=== PATIENT | male | born 1965 | race African-American/Black ===

== ENCOUNTER 2022-09-13 15:32 | Inpatient (IN) | payer OTHER ==
[2022-09-13 16:44] VITALS: BMI 18.7
[2022-09-13] MEDS ORDERED: MAG HYDROX/AL HYDROX/SIMETH 30 ML UNIT-DOSE CUP PO PRN (18:37)
[2022-09-13] MEDS ORDERED: P-EPHED 60MG/TRIPROLIDI 2.5MG TABLET PO PRN (18:37)
[2022-09-13] MEDS ORDERED: MAGNESIUM CITRATE 300 ML BOTTLE PO PRN (18:37)
[2022-09-13] MEDS ORDERED: NICOTINE POLACRILEX 2 MG GUM BC PRN (18:37)
[2022-09-13] MEDS ORDERED: guaiFENesin 200 MG/10 ML 10 ML UNIT-DOSE CUPS PO PRN (18:37)
[2022-09-13] MEDS ORDERED: MAGNESIUM HYDROX 2400MG/30ML ORAL SUSPENSION 30 ML CUP PO PRN (18:37)
[2022-09-13] MEDS ORDERED: NICOTINE 7 MG/24 HOURS TOPICAL PATCH TD PRN (18:37)
[2022-09-13] MEDS ORDERED: LOPERAMIDE HCL 2 MG CAPSULE PO PRN (18:37)
[2022-09-13] MEDS ORDERED: NICOTINE 10 MG CARTRIDGE (INHALER) IH PRN (18:37)
[2022-09-13] MEDS ORDERED: ALBUTEROL SO4 HFA INHALER IH PRN (19:15)
[2022-09-13] MEDS ORDERED: TUBERCULIN PPD 5 TU/0.1ML VIAL ID ONE (22:02)
[2022-09-13] MEDS: levETIRAcetam 500 MG TABLET (FP) PO SCH (22:07)
[2022-09-13] MEDS: THIAMINE HCL 100 MG TABLET (FP) PO SCH (22:09)
[2022-09-14] MEDS: PRENATAL VITAMINS W/ FOLIC ACID TABLET (FP) PO SCH (10:14)
[2022-09-14] MEDS: levETIRAcetam 500 MG TABLET (FP) PO SCH ×2 (10:14→21:36)
[2022-09-14 17:01] LABS: PH,URINE 7.5 (5.0-8.0); URINE APPEARANCE CLEAR; URINE BILIRUBIN NEGATIVE (NEGATIVE); URINE COLOR YELLOW; URINE GLUCOSE (UA) NEGATIVE (NEGATIVE); URINE KETONE NEGATIVE (NEGATIVE); URINE LEUK ESTERASE NEGATIVE (NEGATIVE); URINE NITRITE NEGATIVE (NEGATIVE); URINE PROTEIN NEGATIVE (NEGATIVE); URINE UROBILINOGEN 0.2 mg/dL (0.2-1.0)
[2022-09-14] MEDS: THIAMINE HCL 100 MG TABLET (FP) PO SCH (21:35)
[2022-09-14] MEDS: MOMETASONE FUROATE 220 MCG/IH INHALER IH SCH (21:36)
[2022-09-14] MEDS: MELATONIN 5 MG TABLETS PO PRN (21:36)
[2022-09-15] MEDS: IBUPROFEN 400 MG TABLET (FP) PO PRN (02:34)
[2022-09-15] MEDS: levETIRAcetam 500 MG TABLET (FP) PO SCH ×2 (09:25→21:36)
[2022-09-15] MEDS: PRENATAL VITAMINS W/ FOLIC ACID TABLET (FP) PO SCH (09:26)
[2022-09-15] MEDS: ACETAMINOPHEN 325 MG TABLET (FP) PO PRN (11:05)
[2022-09-15 15:32] LABS: BASO % 0.5 % (0-2.0); EOS % 10.3 % (0-4.5); HEMATOCRIT 39.1 % (35.4-49); HEMOGLOBIN 13.3 GM/dL (11.7-16.9); LYMPH % 18.6 % (8-40); MCH 31.8 pg (25.7-33.7); MCHC 33.9 g/dl (32.0-35.9); MEAN CELL VOLUME 93.9 fl (80-96); MEAN PLT VOLUME 7.3 fl (7.5-11.1); MONO % 9.1 % (3.8-10.2); NEUT % 61.5 % (42.8-82.8); PLATELET COUNT 255 10^3/uL (134-434); RBC 4.16 M/mm3 (4.00-5.60); RDW 13.5 % (11.9-15.9)
[2022-09-15 16:19] LABS: ALBUMIN 3.6 g/dl (3.4-5.0); BLOOD UREA NITROGEN 19.6 mg/dL (7-18); CALCIUM 9.1 mg/dL (8.5-10.1)
[2022-09-15 16:22] LABS: BILIRUBIN,TOTAL 0.3 mg/dL (0.2-1)
[2022-09-15 16:23] LABS: TOT PROT 6.4 g/dl (6.4-8.2)
[2022-09-15 16:35] LABS: SYPHILIS W/ RPR CONF NON-REACTIVE (NONREACTIVE)
[2022-09-15] MEDS: THIAMINE HCL 100 MG TABLET (FP) PO SCH (21:36)
[2022-09-15] MEDS: MELATONIN 5 MG TABLETS PO PRN (21:36)
[2022-09-15] MEDS: QUEtiapine FUMARATE 100 MG TABLET (FP) PO SCH (21:37)
[2022-09-15] MEDS: MOMETASONE FUROATE 220 MCG/IH INHALER IH SCH (21:38)
[2022-09-16] MEDS: IBUPROFEN 400 MG TABLET (FP) PO PRN (08:53)
[2022-09-16] MEDS: PRENATAL VITAMINS W/ FOLIC ACID TABLET (FP) PO SCH (10:09)
[2022-09-16] MEDS: levETIRAcetam 500 MG TABLET (FP) PO SCH ×2 (10:54→21:39)
[2022-09-16] MEDS ORDERED: QUEtiapine FUMARATE 50 MG TABLET PO PRN (19:05)
[2022-09-16] MEDS: THIAMINE HCL 100 MG TABLET (FP) PO SCH (21:39)
[2022-09-16] MEDS: MOMETASONE FUROATE 220 MCG/IH INHALER IH SCH (21:39)
[2022-09-16] MEDS: QUEtiapine FUMARATE 100 MG TABLET (FP) PO SCH (21:39)
[2022-09-17] MEDS: levETIRAcetam 500 MG TABLET (FP) PO SCH ×2 (10:09→22:11)
[2022-09-17] MEDS: PRENATAL VITAMINS W/ FOLIC ACID TABLET (FP) PO SCH (10:09)
[2022-09-17] MEDS: ACETAMINOPHEN 325 MG TABLET (FP) PO PRN (10:11)
[2022-09-17] MEDS: QUEtiapine FUMARATE 100 MG TABLET (FP) PO SCH (22:11)
[2022-09-17] MEDS: THIAMINE HCL 100 MG TABLET (FP) PO SCH (22:11)
[2022-09-17] MEDS: MOMETASONE FUROATE 220 MCG/IH INHALER IH SCH (22:12)
[2022-09-18] MEDS: IBUPROFEN 400 MG TABLET (FP) PO PRN (09:16)
[2022-09-18] MEDS: PRENATAL VITAMINS W/ FOLIC ACID TABLET (FP) PO SCH (10:33)
[2022-09-18] MEDS: levETIRAcetam 500 MG TABLET (FP) PO SCH ×2 (10:33→21:35)
[2022-09-18] MEDS: THIAMINE HCL 100 MG TABLET (FP) PO SCH (21:35)
[2022-09-18] MEDS: QUEtiapine FUMARATE 100 MG TABLET (FP) PO SCH (21:35)
[2022-09-18] MEDS: MOMETASONE FUROATE 220 MCG/IH INHALER IH SCH (21:36)
[2022-09-19] MEDS: levETIRAcetam 500 MG TABLET (FP) PO SCH ×2 (09:36→21:28)
[2022-09-19] MEDS: PRENATAL VITAMINS W/ FOLIC ACID TABLET (FP) PO SCH (09:36)
[2022-09-19] MEDS: THIAMINE HCL 100 MG TABLET (FP) PO SCH (21:28)
[2022-09-19] MEDS: QUEtiapine FUMARATE 100 MG TABLET (FP) PO SCH (21:28)
[2022-09-19] MEDS: MOMETASONE FUROATE 220 MCG/IH INHALER IH SCH (21:29)
[2022-09-20] MEDS: levETIRAcetam 500 MG TABLET (FP) PO SCH ×2 (09:40→21:35)
[2022-09-20] MEDS: PRENATAL VITAMINS W/ FOLIC ACID TABLET (FP) PO SCH (09:40)
[2022-09-20] MEDS: MOMETASONE FUROATE 220 MCG/IH INHALER IH SCH (21:35)
[2022-09-20] MEDS: QUEtiapine FUMARATE 100 MG TABLET (FP) PO SCH (21:35)
[2022-09-20] MEDS: MELATONIN 5 MG TABLETS PO PRN (21:35)
[2022-09-20] MEDS: THIAMINE HCL 100 MG TABLET (FP) PO SCH (21:35)
[2022-09-21] MEDS: PRENATAL VITAMINS W/ FOLIC ACID TABLET (FP) PO SCH (09:49)
[2022-09-21] MEDS: levETIRAcetam 500 MG TABLET (FP) PO SCH ×2 (09:49→23:14)
[2022-09-21] MEDS: QUEtiapine FUMARATE 100 MG TABLET (FP) PO SCH (23:14)
[2022-09-21] MEDS: THIAMINE HCL 100 MG TABLET (FP) PO SCH (23:14)
[2022-09-21] MEDS: MOMETASONE FUROATE 220 MCG/IH INHALER IH SCH (23:14)
[2022-09-22] MEDS: PRENATAL VITAMINS W/ FOLIC ACID TABLET (FP) PO SCH (10:07)
[2022-09-22] MEDS: levETIRAcetam 500 MG TABLET (FP) PO SCH ×2 (10:07→21:17)
[2022-09-22] MEDS: QUEtiapine FUMARATE 100 MG TABLET (FP) PO SCH (21:17)
[2022-09-22] MEDS: THIAMINE HCL 100 MG TABLET (FP) PO SCH (21:17)
[2022-09-22] MEDS: MOMETASONE FUROATE 220 MCG/IH INHALER IH SCH (21:17)
[2022-09-23] MEDS: ACETAMINOPHEN 325 MG TABLET (FP) PO PRN (08:51)
[2022-09-23] MEDS: PRENATAL VITAMINS W/ FOLIC ACID TABLET (FP) PO SCH (09:30)
[2022-09-23] MEDS: levETIRAcetam 500 MG TABLET (FP) PO SCH ×2 (09:30→21:36)
[2022-09-23] MEDS: THIAMINE HCL 100 MG TABLET (FP) PO SCH (21:35)
[2022-09-23] MEDS: MOMETASONE FUROATE 220 MCG/IH INHALER IH SCH (21:36)
[2022-09-23] MEDS: QUEtiapine FUMARATE 100 MG TABLET (FP) PO SCH (21:36)
[2022-09-24] MEDS: PRENATAL VITAMINS W/ FOLIC ACID TABLET (FP) PO SCH (09:56)
[2022-09-24] MEDS: levETIRAcetam 500 MG TABLET (FP) PO SCH ×2 (09:56→22:12)
[2022-09-24] MEDS: QUEtiapine FUMARATE 100 MG TABLET (FP) PO SCH (22:12)
[2022-09-24] MEDS: MOMETASONE FUROATE 220 MCG/IH INHALER IH SCH (22:12)
[2022-09-24] MEDS: THIAMINE HCL 100 MG TABLET (FP) PO SCH (22:12)
[2022-09-25] MEDS: PRENATAL VITAMINS W/ FOLIC ACID TABLET (FP) PO SCH (09:44)
[2022-09-25] MEDS: levETIRAcetam 500 MG TABLET (FP) PO SCH ×2 (09:44→21:22)
[2022-09-25] MEDS: THIAMINE HCL 100 MG TABLET (FP) PO SCH (21:22)
[2022-09-25] MEDS: QUEtiapine FUMARATE 100 MG TABLET (FP) PO SCH (21:23)
[2022-09-25] MEDS: MOMETASONE FUROATE 220 MCG/IH INHALER IH SCH (21:24)
[2022-09-26] MEDS: PRENATAL VITAMINS W/ FOLIC ACID TABLET (FP) PO SCH (09:41)
[2022-09-26] MEDS: levETIRAcetam 500 MG TABLET (FP) PO SCH ×2 (09:41→21:33)
[2022-09-26] MEDS: QUEtiapine FUMARATE 100 MG TABLET (FP) PO SCH (21:33)
[2022-09-26] MEDS: THIAMINE HCL 100 MG TABLET (FP) PO SCH (21:33)
[2022-09-26] MEDS: MELATONIN 5 MG TABLETS PO PRN (21:33)
[2022-09-26] MEDS: MOMETASONE FUROATE 220 MCG/IH INHALER IH SCH (21:34)
[2022-09-27] MEDS: levETIRAcetam 500 MG TABLET (FP) PO SCH ×2 (10:05→21:24)
[2022-09-27] MEDS: PRENATAL VITAMINS W/ FOLIC ACID TABLET (FP) PO SCH (10:05)
[2022-09-27] MEDS: THIAMINE HCL 100 MG TABLET (FP) PO SCH (21:24)
[2022-09-27] MEDS: QUEtiapine FUMARATE 100 MG TABLET (FP) PO SCH (21:24)
[2022-09-27] MEDS: MELATONIN 5 MG TABLETS PO PRN (21:24)
[2022-09-27] MEDS: MOMETASONE FUROATE 220 MCG/IH INHALER IH SCH (22:15)
[2022-09-28] MEDS: ACETAMINOPHEN 325 MG TABLET (FP) PO PRN (01:33)
[2022-09-28] MEDS: PRENATAL VITAMINS W/ FOLIC ACID TABLET (FP) PO SCH (10:13)
[2022-09-28] MEDS: levETIRAcetam 500 MG TABLET (FP) PO SCH ×2 (10:13→21:30)
[2022-09-28] MEDS: MOMETASONE FUROATE 220 MCG/IH INHALER IH SCH (21:30)
[2022-09-28] MEDS: THIAMINE HCL 100 MG TABLET (FP) PO SCH (21:30)
[2022-09-28] MEDS: QUEtiapine FUMARATE 100 MG TABLET (FP) PO SCH (21:30)
[2022-09-28] MEDS: MELATONIN 5 MG TABLETS PO PRN (21:30)
[2022-09-29 06:35] VITALS: BP 114/71; PULSE 78; RESP 16; TEMP 97.1
[2022-09-29] MEDS: PRENATAL VITAMINS W/ FOLIC ACID TABLET (FP) PO SCH (09:12)
[2022-09-29] MEDS: levETIRAcetam 500 MG TABLET (FP) PO SCH (09:12)
== END 2022-09-29 11:00 | disposition left against medical advice (07) | DRG 894 ==
LOC: YASAS 15:32 → Y3E 21:39
PROVIDERS: ADMIT Allergy & Immunology; ATTEND Psychiatry & Neurology Pain Medicine
PROC: HZ42ZZZ Group Counseling for Substance Abuse Treatment, Cognitive-Behavioral (ICD-10-PCS; principal; 2022-09-13)
DX: F14.20 Cocaine dependence, uncomplicated (principal); F17.210 Nicotine dependence, cigarettes, uncomplicated; F31.9 Bipolar disorder, unspecified; F25.9 Schizoaffective disorder, unspecified; F19.24 Other psychoactive substance dependence with psychoactive substance-induced mood disorder; F41.1 Generalized anxiety disorder; F60.9 Personality disorder, unspecified; Z91.14 Patient's other noncompliance with medication regimen; F91.8 Other conduct disorders; Z91.199 Patient's noncompliance with other medical treatment and regimen due to unspecified reason
CPT/HCPCS: 36415; 80053; 80185; 81003; 85025; 86780; 86803; C9803-CS; U0003; U0005

== ENCOUNTER 2022-12-14 13:29 | Inpatient (IN) | payer OTHER ==
[2022-12-14 15:09] VITALS: BMI 18.7
[2022-12-14] MEDS ORDERED: DICYCLOMINE HCL 10 MG CAPSULE PO PRN (15:35)
[2022-12-14] MEDS ORDERED: BISMUTH SUBSALICYLATE 524 MG/30 ML PO PRN (15:35)
[2022-12-14] MEDS ORDERED: LOPERAMIDE HCL 2 MG CAPSULE PO PRN (15:35)
[2022-12-14] MEDS ORDERED: hydrOXYzine PAMOATE 25 MG CAPSULE (FP) PO PRN (15:35)
[2022-12-14] MEDS ORDERED: IBUPROFEN 400 MG TABLET (FP) PO PRN (15:35)
[2022-12-14] MEDS ORDERED: MAG HYDROX/AL HYDROX/SIMETH 30 ML UNIT-DOSE CUP PO PRN (15:35)
[2022-12-14] MEDS ORDERED: BENZOCAINE/MENTHOL (CHLORASEPTIC ) LOZENGE MM PRN (15:35)
[2022-12-14] MEDS ORDERED: diazePAM 5 MG TABLET PO PRN (15:35)
[2022-12-14] MEDS ORDERED: NICOTINE POLACRILEX 4 MG GUM BUC PRN (15:35)
[2022-12-14] MEDS ORDERED: NICOTINE 10 MG CARTRIDGE (INHALER) IH PRN (15:35)
[2022-12-14] MEDS ORDERED: ONDANSETRON *ODT* 4 MG TABLET SL PRN (15:35)
[2022-12-14] MEDS ORDERED: MAGNESIUM HYDROX 2400MG/30ML ORAL SUSPENSION 30 ML CUP PO PRN (15:35)
[2022-12-14] MEDS ORDERED: NALOXONE HCL (KLOXXADO) 8 MG SPRAY NS PRN (15:35)
[2022-12-14] MEDS ORDERED: POLYETHYLENE GLYCOL (HEALTHYLAX) 3350 17 GM PACKET PO PRN (15:35)
[2022-12-14] MEDS ORDERED: ACETAMINOPHEN 325 MG TABLET (FP) PO PRN ×2 (15:35)
[2022-12-14] MEDS ORDERED: BUPRENORPHINE HCL 150 MCG, BUPRENORPHINE HCL 75 MCG BC PRN (15:35)
[2022-12-14] MEDS ORDERED: IBUPROFEN 600 MG TABLET (FP) PO PRN (15:35)
[2022-12-14] MEDS ORDERED: cloNIDine HCL 0.1 MG TABLET PO ONE ×2 (17:00→18:30)
[2022-12-14] MEDS ORDERED: BUPRENORPHINE HCL 150 MCG, BUPRENORPHINE HCL 75 MCG BC ONE (17:30)
[2022-12-14] MEDS: PRENATAL VITAMINS W/ FOLIC ACID TABLET (FP) PO SCH (19:25)
[2022-12-14] MEDS: METHOCARBAMOL 500 MG TABLET PO PRN (19:26)
[2022-12-14] MEDS ORDERED: cloNIDine HCL 0.1 MG TABLET PO PRN (19:35)
[2022-12-14] MEDS: MELATONIN 5 MG TABLETS PO SCH (23:13)
[2022-12-14] MEDS: THIAMINE HCL 100 MG TABLET (FP) PO SCH (23:13)
[2022-12-15] MEDS ORDERED: BUPRENORPHINE HCL 150 MCG, BUPRENORPHINE HCL 75 MCG BC PRN
[2022-12-15] MEDS: BUPRENORPHINE HCL 150 MCG, BUPRENORPHINE HCL 75 MCG BC SCH ×2 (06:44→07:10)
[2022-12-15] MEDS ORDERED: cloNIDine HCL 0.1 MG TABLET PO PRN (09:00)
[2022-12-15] MEDS ORDERED: methaDONE HCL 10 MG TABLET (FOR DETOX USE ONLY) PO ONE (09:30)
[2022-12-15] MEDS ORDERED: ALBUTEROL SO4 HFA INHALER IH PRN (09:46)
[2022-12-15] MEDS: PRENATAL VITAMINS W/ FOLIC ACID TABLET (FP) PO SCH (10:27)
[2022-12-15] MEDS: levETIRAcetam 500 MG TABLET (FP) PO SCH ×2 (10:28→22:44)
[2022-12-15 10:47] LABS: HEMATOCRIT 41.5 % (35.4-49); HEMOGLOBIN 14.6 GM/dL (11.7-16.9); MCH 32.1 pg (25.7-33.7); MCHC 35.1 g/dl (32.0-35.9); MEAN CELL VOLUME 91.5 fl (80-96); MEAN PLT VOLUME 6.9 fl (7.5-11.1); PLATELET COUNT 292 10^3/uL (134-434); RBC 4.54 M/mm3 (4.00-5.60); RDW 13.8 % (11.9-15.9); WHITE BLOOD COUNT 7.7 K/mm3 (4.0-10.0)
[2022-12-15 11:31] LABS: BLOOD UREA NITROGEN 12.7 mg/dL (7-18); CALCIUM 9.1 mg/dL (8.5-10.1)
[2022-12-15 11:32] LABS: ALBUMIN 3.7 g/dl (3.4-5.0)
[2022-12-15 11:35] LABS: CREATININE 1.3 mg/dL (0.55-1.3)
[2022-12-15 11:36] LABS: BILIRUBIN,TOTAL 0.6 mg/dL (0.2-1); TOT PROT 6.8 g/dl (6.4-8.2)
[2022-12-15] MEDS: MOMETASONE FUROATE 220 MCG/IH INHALER IH SCH (22:41)
[2022-12-15] MEDS: THIAMINE HCL 100 MG TABLET (FP) PO SCH (22:44)
[2022-12-15] MEDS: MELATONIN 5 MG TABLETS PO SCH (22:44)
[2022-12-16] MEDS: METHOCARBAMOL 500 MG TABLET PO PRN ×2 (01:55→22:48)
[2022-12-16] MEDS ORDERED: BUPRENORPHINE HCL 450 MCG FILM BC SCH (06:00)
[2022-12-16] MEDS: levETIRAcetam 500 MG TABLET (FP) PO SCH ×2 (10:23→22:45)
[2022-12-16] MEDS: PRENATAL VITAMINS W/ FOLIC ACID TABLET (FP) PO SCH (10:23)
[2022-12-16] MEDS: THIAMINE HCL 100 MG TABLET (FP) PO SCH (22:45)
[2022-12-16] MEDS: MOMETASONE FUROATE 220 MCG/IH INHALER IH SCH (22:45)
[2022-12-16] MEDS: MELATONIN 5 MG TABLETS PO SCH (22:45)
[2022-12-17] MEDS ORDERED: BUPRENORPHINE/NALOXONE 4 MG/1 MG FILM PACKET SL SCH (06:00)
[2022-12-17] MEDS ORDERED: methaDONE HCL 10 MG TABLET (FOR DETOX USE ONLY) PO ONE (10:00)
[2022-12-17] MEDS: levETIRAcetam 500 MG TABLET (FP) PO SCH ×2 (10:18→21:35)
[2022-12-17] MEDS: PRENATAL VITAMINS W/ FOLIC ACID TABLET (FP) PO SCH (10:18)
[2022-12-17] MEDS: THIAMINE HCL 100 MG TABLET (FP) PO SCH (21:35)
[2022-12-17] MEDS: METHOCARBAMOL 500 MG TABLET PO PRN (21:35)
[2022-12-17] MEDS: QUEtiapine FUMARATE 50 MG TABLET PO SCH (21:35)
[2022-12-17] MEDS: MOMETASONE FUROATE 220 MCG/IH INHALER IH SCH (21:36)
[2022-12-17] MEDS: MELATONIN 5 MG TABLETS PO SCH (21:36)
[2022-12-18] MEDS ORDERED: BUPRENORPHINE/NALOXONE 8 MG/2 MG FILM PACKET SL ONE (06:00)
[2022-12-18] MEDS: METHOCARBAMOL 500 MG TABLET PO PRN (10:41)
[2022-12-18] MEDS: levETIRAcetam 500 MG TABLET (FP) PO SCH ×2 (10:41→21:52)
[2022-12-18] MEDS: PRENATAL VITAMINS W/ FOLIC ACID TABLET (FP) PO SCH (10:41)
[2022-12-18] MEDS: MELATONIN 5 MG TABLETS PO SCH (21:51)
[2022-12-18] MEDS: THIAMINE HCL 100 MG TABLET (FP) PO SCH (21:52)
[2022-12-18] MEDS: QUEtiapine FUMARATE 50 MG TABLET PO SCH (21:52)
[2022-12-18] MEDS: MOMETASONE FUROATE 220 MCG/IH INHALER IH SCH (21:52)
[2022-12-19] MEDS ORDERED: ONDANSETRON *ODT* 4 MG TABLET SL PRN (09:17)
[2022-12-19] MEDS ORDERED: methaDONE HCL 10 MG TABLET (FOR DETOX USE ONLY) PO ONE (10:00)
[2022-12-19] MEDS: levETIRAcetam 500 MG TABLET (FP) PO SCH ×2 (10:29→22:22)
[2022-12-19] MEDS: PRENATAL VITAMINS W/ FOLIC ACID TABLET (FP) PO SCH (10:29)
[2022-12-19] MEDS: MELATONIN 5 MG TABLETS PO SCH (22:22)
[2022-12-19] MEDS: THIAMINE HCL 100 MG TABLET (FP) PO SCH (22:22)
[2022-12-19] MEDS: QUEtiapine FUMARATE 50 MG TABLET PO SCH (22:22)
[2022-12-19] MEDS: MOMETASONE FUROATE 220 MCG/IH INHALER IH SCH (22:22)
[2022-12-20] MEDS: levETIRAcetam 500 MG TABLET (FP) PO SCH (09:56)
[2022-12-20] MEDS: PRENATAL VITAMINS W/ FOLIC ACID TABLET (FP) PO SCH (09:56)
[2022-12-20 10:06] VITALS: BP 99/63; PULSE 80; RESP 18; TEMP 96.9
== END 2022-12-20 10:03 | disposition home or self-care (01) | DRG 897 ==
LOC: YASAS 13:29 → Y3N 17:06
PROVIDERS: ADMIT Allergy & Immunology; ATTEND Surgery
PROC: HZ2ZZZZ Detoxification Services for Substance Abuse Treatment (ICD-10-PCS; principal; 2022-12-14)
DX: F11.23 Opioid dependence with withdrawal (principal); F14.20 Cocaine dependence, uncomplicated; R56.1 Post traumatic seizures; Z68.1 Body mass index [BMI] 19.9 or less, adult; F12.20 Cannabis dependence, uncomplicated; F17.210 Nicotine dependence, cigarettes, uncomplicated; F19.24 Other psychoactive substance dependence with psychoactive substance-induced mood disorder; F25.9 Schizoaffective disorder, unspecified; F60.9 Personality disorder, unspecified; J45.909 Unspecified asthma, uncomplicated; R73.03 Prediabetes; R63.4 Abnormal weight loss; Z99.89 Dependence on other enabling machines and devices; Z56.0 Unemployment, unspecified; Z59.00 Homelessness unspecified
CPT/HCPCS: 36415; 80053; 82962; 85027; 86780; 93005; 93010; C9803-CS; Q0162; U0003; U0005